=== PATIENT | female | born 1935 | race Caucasian/White ===

== ENCOUNTER 2023-08-15 09:35 | Emergency (ER) | payer MEDICARE, OTHER, SELFPAY ==
[2023-08-15 09:46] VITALS: BP 181/86
[2023-08-15 11:25] VITALS: BMI 26.2
[2023-08-15 11:29] VITALS: BP 189/65
[2023-08-15 12:00] VITALS: BP 164/66
[2023-08-15 13:00] VITALS: BP 144/63
--- NOTE | 2023-08-15 14:07 | ED.GENMED ---
History of Present Illness
General
Chief Complaint: Fall
Source: patient and family
Time Seen by Provider: 08/15/23 10:08
Travel History
Have you had any contact with someone who has COVID-19?: No
Do you have any symptoms of coronavirus? Fever > 100 degrees, chills, cough, shortness of breath, sore throat, loss of taste or smell, muscle aches, or headache?: No
History of Present Illness
History of Present Illness:
This is an 88-year-old female who tripped while walking. She fell onto her face. Patient admits that she had seen some batches of ice but not sure if she struck those patches. She did not lose consciousness. No neck pain. No back pain. Denies
any anticoagulant use.
Past History
Past History
ED Past Medical History: Hypothyroidism and Other (Osteoporosis)
ED Past Surgical History: None
Social History
Tobacco: Non-smoker
Alcohol: None
Drug: None
Living: with family
Employment: Retired
Phy Exam
Physical Exam
Physical Exam:
CONSTITUTIONAL Vital signs reviewed, Patient alert and oriented to person, place and time. Well-appearing
HEAD hematoma to right forehead, small skin tear noted to the bridge of the nose and right maxillary region. No focal bony tenderness to the midface.
EYES eyelids normal to inspection, Extraocular muscles intact, Conjunctiva normal, Sclera normal.
NECK normal range of motion, Trachea midline, no jugular venous distention. No midline tenderness
RESP no respiratory distress
BACK No obvious deformities
UPPER EXTREMITY Gross Range of motion normal, gross motor strength normal
LOWER EXTREMITY Gross range of motion normal, Gross motor strength normal
NEURO Speech normal, No focal motor deficits include, [place] coma scale 15, Memory normal, Cranial Nerves intact to screening exam.
SKIN Skin warm, dry, and normal in color.
PSYCHIATRIC Patient oriented to person place and time, Normal affect.
Course
Orders/Labs/Results
Orders:
Orders
08/15/23 10:17
CT Head W/o Iv Contrast Urgent
Comment:
Reason For Exam: fall
Vital Signs
Initial and Last Documented VS:
Initial Vital Signs
Temp Pulse Resp BP Pulse Ox
98.0 F 66 16 181/86 98
08/15/23 09:46 08/15/23 09:46 08/15/23 09:46 08/15/23 09:46 08/15/23 09:46
Last Documented Vital Signs
Temp Pulse Resp BP Pulse Ox
98.0 F 66 16 144/63 98
08/15/23 09:46 08/15/23 09:46 08/15/23 09:46 08/15/23 13:00 08/15/23 09:46
MDM/Problems Addressed
MDM/Problems Addressed:
Head injury, facial skin tears, nose injury
*Radiology
Radiology exam reviewed: preliminary read by ED provider (No obvious gross hemorrhage)
*Pulse Oximetry
Patient hypoxic: no
*Critical Care Note
Total Time (30-74mins, 75-104mins- exclusive of procedures): Not Applicable
Data Reviewed
Source: patient and family
Further Testing Considered But Not Given:
Consider C-spine imaging the patient is awake and alert in no midline tenderness
Patient Management
Escalation/DeEscalation of care consider admission/obs:
Local wound care, CT negative. Okay for discharge.
ED Attending Note
-
Portions of this chart may have been created with voice recognition software.� Occasional wrong word or��sound alike� substitutions may have occurred due to the inherent limitations of voice recognition software.
Discharge Plan
Departure
Patient Disposition: Home (Routine Discharge)
Date of Disposition: 08/15/23
Time of Disposition: 14:11
Patient with high blood pressure during this ER visit?: Yes
Discharge Problem:
Head injury, Abrasion
Instructions: Head Injury in Adults (DC), Skin Abrasions (DC), BLOOD PRESSURE
Prescriptions:
No Action
levothyroxine 75 MCG tablet
75 mcg PO DAILY
flaxseed oil 1,000 MG capsule
1,000 mg PO DAILY
glucosamine aparicio 2KCl-chondroit [Glucosamine Sulf-Chondroitin] 1 EACH capsule
1 cap PO DAILY
denosumab [Prolia] 60 MG/ML syringe
60 mg SQ [id number]
aspirin 81 MG tablet,delayed release (DR/EC)
81 mg PO DAILY
polyvinyl alcohol-povidon(PF) [Refresh Classic (PF)] 10 DROPS dropperette
1 drops BOTH EYES QIDPRN PRN (Reason: dry eye)
multivitamin with folic acid [Tab-A-Maxine] 1 TABLET tablet
1 tab PO DAILY
latanoprost (PF) 7.5 ML drops
1 drp BOTH EYES HS
amoxicillin-pot clavulanate 1 TABLET tablet
1 tab PO Q12 Qty: 14 0RF
Referrals:
Erika Reich DO [Family Provider] -
Activity Restrictions/Additional Instructions:
Please ice your injuries and keep wounds clean and dry. Return immediately for changes in mentation, weakness of any kind, vomiting, neck pain or any other concerns.
Interventions
Interventions:
*Risk Screen - Suicide Last Done: 08/15/23 11:25
*General Assessment Last Done: 08/15/23 11:25
*Neglect/Abuse Screening Last Done: 08/15/23 11:25
ED- Fall Risk Assessment Last Done: 08/15/23 11:25
*ED COVID-19 Vaccine History Last Done: 08/15/23 09:46
ED-Musculoskeletal Assessment Last Done: 08/15/23 11:25
ED- Neurological Assessment Last Done: 08/15/23 11:25
ED-Skin Assessment Last Done: 08/15/23 11:25
[2023-08-15 14:38] VITALS: BP 177/63
== END 2023-08-15 15:27 | disposition home or self-care (01) ==
LOC: EMR 09:35
PROVIDERS: EMERGENCY PHYSICIAN Emergency Medicine; FAMILY PHYSICIAN Family Medicine
DX: S09.90XA Unspecified injury of head, initial encounter (principal); S00.31XA Abrasion of nose, initial encounter; W01.0XXA Fall on same level from slipping, tripping and stumbling without subsequent striking against object, initial encounter; Y93.01 Activity, walking, marching and hiking; R03.0 Elevated blood-pressure reading, without diagnosis of hypertension
CPT/HCPCS: 99284; 70450

== ENCOUNTER → 2024-06-06 10:27 | Outpatient (REF) | payer MEDICARE, OTHER, SELFPAY ==
[2024-06-06 11:58] LABS: % Basophils 0.6 % (0-2); % Eosinophils 1.8 % (0-6); % Immature Granulocytes 0.1 % (0-0.5); % Lymphocytes 25.7 % (20.5-51.1); % Monocytes 6.6 % (1.7-9.3); % Neutrophils 65.2 % (42.2-75.2); Absolute Eosinophils 0.1 10^3/uL (0-0.7); Absolute Lymphocytes 1.7 10^3/uL (1.2-3.4); Absolute Monocytes 0.4 10^3/uL (0.1-0.6); Absolute Neutrophils 4.4 10^3/uL (1.4-6.5); Hematocrit 42.8 % (37.0-47.0); Hemoglobin 13.8 g/dL (12.0-16.0); Mean Corp Hgb Conc. 32.2 g/dL (33.0-37.0); Mean Corpuscular Hgb 30.7 pg (27.0-31.0); Mean Corpuscular Volume 95.1 fL (81.0-99.0); Mean Platelet Volume 11.9 fL (7.4-10.4); Nucleated Red Blood Cells % 0 %; Platelet Count 202 10^3/uL (130-400); Red Cell Dist. Width 12.8 % (11.5-14.5); White Blood Cell Count 6.7 10^3/uL (4.8-10.8)
[2024-06-06 12:41] LABS: ALT (SGPT) 20 U/L (0-35); AST (SGOT) 26 U/L (14-36); Albumin 4.2 g/dl (3.5-5.0); Alkaline Phosphatase 47 U/L (38-126); Blood Urea Nitrogen 29 mg/dl (7-17); Calcium 9.6 mg/dl (8.4-10.2); Carbon Dioxide 30 mmol/L (22-30); Chloride 103 mmol/L (98-107); Glucose 87 mg/dl (70-99); HDL Cholesterol 66 mg/dl; Iron 121 ug/dl (37-170); LDL Cholesterol, Calculated 102 mg/dl; Potassium 5.1 mmol/L (3.5-5.1); Sodium 141 mmol/L (135-145); Total Bilirubin 0.8 mg/dl (0.2-1.3); Total Cholesterol 186 mg/dl (50-199); Total Protein 6.9 g/dl (6.3-8.2); Triglyceride 91 mg/dl (10-149); Very Low Density Lipoprotein 18 mg/dl (0-30); eGFR 54.87
[2024-06-06 12:51] LABS: Percent Saturation 43 % (20-50); Total Iron Binding Capacity 277 ug/dl (265-497)
[2024-06-06 13:19] LABS: Ferritin 67.2 ng/ml (11.1-264.0)
[2024-06-07 08:47] LABS: Glycohemoglobin (HgbA1c) 5.4 % (4.0-5.6)
== END ==
LOC: REG 10:27
PROVIDERS: ATTENDING PHYSICIAN Family Medicine
DX: N28.9 Disorder of kidney and ureter, unspecified (principal); E03.9 Hypothyroidism, unspecified; D50.9 Iron deficiency anemia, unspecified; R73.9 Hyperglycemia, unspecified
CPT/HCPCS: 36415; 80053; 80061; 82728; 83036; 83540; 83550; 85025